=== PATIENT | female | born 1955 | race Two or more races ===

== ENCOUNTER 2023-05-09 18:38 | Emergency (ER) | payer OTHER ==
[~2023-05-09] VITALS: Ht 167.6 cm; Wt 75.0 kg
[2023-05-09 20:02] VITALS: TEMP 98.9
[2023-05-09 20:04] VITALS: BP 136/79; PULSE 72; RESP 17
[2023-05-09] MEDS ORDERED: ACYCLOVIR 200 MG CAPSULE PO ONE (20:15)
== END 2023-05-09 21:50 ==
LOC: EMS 18:41
DX: B02.9 Zoster without complications (principal)
CPT/HCPCS: 99283

== ENCOUNTER 2023-05-10 12:56 | Inpatient (IN) | payer OTHER ==
[~2023-05-10] VITALS: Ht 154.9 cm; Wt 54.0 kg
[2023-05-10] MEDS: IBUPROFEN 600 MG TABLET PO SCH ×2 (11:28→18:00)
[2023-05-10] MEDS ORDERED: IBUPROFEN 600 MG TABLET PO PRN (13:15)
[2023-05-10] MEDS ORDERED: IBUPROFEN 600 MG TABLET PO ONE (13:15)
[2023-05-10] MEDS ORDERED: ValACYclovir HCL 500 MG TABLET PO ONE (13:15)
[2023-05-10] MEDS ORDERED: ZOLPIDEM TARTRATE 10 MG TABLET PO PRN (13:15)
[2023-05-10 14:36] LABS: BASOPHILS % (AUTO) 0.6 % (0.0-2.0); EOSINOPHILS % (AUTO) 2.9 % (1.0-6.0); HEMATOCRIT 41.1 % (36-46); HEMOGLOBIN 13.8 g/dL (12.0-16.0); LYMPHOCYTES # (AUTO) 1.3 K/uL (1.0-4.8); LYMPHOCYTES % (AUTO) 18.7 % (22.0-44.0); MEAN CORPUSCULAR HEMOGLOBIN 30.6 pg (26.0-34.0); MEAN CORPUSCULAR HGB CONC 33.5 G/dL (31.0-37.0); MEAN CORPUSCULAR VOLUME 91 fL (80-100); MONOCYTES # (AUTO) 0.4 K/uL (0.1-1.0); MONOCYTES % (AUTO) 6.4 % (2.0-9.0); NEUTROPHILS % (AUTO) 71.4 % (40.0-70.0); PLATELET COUNT (AUTO) 248 K/uL (150-450); RED BLOOD CELL COUNT(AUTO) 4.51 MIL/uL (4.00-5.20); RED CELL DISTRIBUTION WIDTH 14.7 % (11.5-14.5)
[2023-05-10 14:45] LABS: ANION GAP 6 mmol/L (8-16); CALCIUM, TOTAL 9.2 mg/dL (8.8-10.5); CARBON DIOXIDE 32 mmol/L (22-29); CHLORIDE 98 mmol/L (98-107); CREATININE 0.79 mg/dL (0.60-1.30); GLOMERULAR FILTR. RATE CALC > 60 mL/min (>60); GLUCOSE,RANDOM 99 mg/dL (70-110); POTASSIUM 4.7 mmol/L (3.5-5.1); SODIUM SERUM 136 mmol/L (136-145)
[2023-05-10 14:51] LABS: ALANINE AMINOTRANSFERASE 20 U/L (12-78); ALBUMIN 3.6 g/dL (3.4-5.0); ALKALINE PHOSPHATASE 71 U/L (46-116); ASPARTATE AMINOTRANSFERASE 19 U/L (15-37); BILIRUBIN,TOTAL 0.3 mg/dL (0.1-1.0); TOTAL PROTEIN, SERUM 7.1 g/dL (6.4-8.2)
[2023-05-10] MEDS ORDERED: BISACODYL 10 MG RECTAL RECTAL SUPPOSITORY PR PRN (16:45)
[2023-05-10] MEDS ORDERED: ONDANSETRON HCL 4 MG/2 ML VIAL IVP PRN (16:45)
[2023-05-10] MEDS ORDERED: MAGNESIUM HYDROXIDE SUSPENSION 30 ML UDCUP PO PRN (16:45)
[2023-05-10] MEDS ORDERED: ALBUTEROL SULFATE 2.5 MG/0.5 ML NEB SOLUTION NEB PRN (16:45)
[2023-05-10] MEDS ORDERED: IPRATROPIUM BROMIDE 0.5 MG/2.5 ML NEB SOLUTION NEB PRN (16:45)
[2023-05-10 18:16] LABS: COVID AG,FIA SOURCE NASOPHARYNGEAL
[2023-05-10] MEDS: DOCUSATE SODIUM 100 MG CAPSULE PO SCH (20:30)
[2023-05-10] MEDS ORDERED: ValACYclovir HCL 500 MG TABLET PO SCH (21:00)
[2023-05-10] MEDS: ZOLPIDEM TARTRATE 5 MG TABLET PO PRN (22:49)
[2023-05-10 22:52] VITALS: BP 116/63; PULSE 60; RESP 17; TEMP 98.1
[2023-05-11 00:10] VITALS: BP 122/65; PULSE 61; RESP 18; TEMP 98.3
[2023-05-11] MEDS: IBUPROFEN 600 MG TABLET PO SCH ×3 (00:56→15:01)
[2023-05-11] MEDS: HEPARIN SODIUM,PORCINE 5,000 UNITS/ML VIAL SQ SCH ×4 (00:56→23:30)
[2023-05-11 04:50] VITALS: BP 126/69; PULSE 56; RESP 18; TEMP 98
[2023-05-11 08:00] VITALS: BP 132/66; PULSE 60; RESP 20; TEMP 98.2
[2023-05-11] MEDS: DOCUSATE SODIUM 100 MG CAPSULE PO SCH ×2 (08:46→23:29)
[2023-05-11] MEDS ORDERED: PANTOPRAZOLE SODIUM 40 MG DR TABLET PO SCH (09:00)
[2023-05-11] MEDS ORDERED: PANTOPRAZOLE SODIUM 40 MG/VIAL IVP SCH (09:00)
[2023-05-11] MEDS: ValACYclovir HCL 500 MG TABLET PO SCH ×2 (15:01→23:29)
[2023-05-11] MEDS: PANTOPRAZOLE SODIUM 40 MG DR TABLET PO SCH (15:01)
[2023-05-11 20:14] VITALS: BP 103/50; PULSE 71; RESP 18; TEMP 98.6
[2023-05-12] MEDS: IBUPROFEN 600 MG TABLET PO SCH ×5 (05:45→23:55)
[2023-05-12 05:54] VITALS: BP 134/72; PULSE 70; RESP 20; TEMP 98.3
[2023-05-12] MEDS: ValACYclovir HCL 500 MG TABLET PO SCH ×3 (08:11→21:41)
[2023-05-12] MEDS: DOCUSATE SODIUM 100 MG CAPSULE PO SCH ×2 (08:12→21:41)
[2023-05-12] MEDS: PANTOPRAZOLE SODIUM 40 MG DR TABLET PO SCH (08:12)
[2023-05-12] MEDS: HEPARIN SODIUM,PORCINE 5,000 UNITS/ML VIAL SQ SCH ×3 (08:13→23:55)
[2023-05-12 08:16] VITALS: BP 153/82; PULSE 66; RESP 18; TEMP 97.5
[2023-05-12] MEDS ORDERED: LISINOPRIL 20 MG TABLET PO ONE (12:00)
[2023-05-12 20:09] VITALS: BP 122/64; PULSE 69; RESP 20; TEMP 98.8
[2023-05-12] MEDS: ZOLPIDEM TARTRATE 5 MG TABLET PO PRN (21:47)
[2023-05-13 04:22] VITALS: BP 122/51; PULSE 62; RESP 19; TEMP 97.9
[2023-05-13] MEDS: IBUPROFEN 600 MG TABLET PO SCH ×3 (05:39→18:00)
[2023-05-13 07:35] VITALS: BP 128/71; PULSE 54; RESP 18; TEMP 98
[2023-05-13] MEDS: HEPARIN SODIUM,PORCINE 5,000 UNITS/ML VIAL SQ SCH ×2 (08:44→17:01)
[2023-05-13] MEDS: ValACYclovir HCL 500 MG TABLET PO SCH ×2 (08:44→16:56)
[2023-05-13] MEDS: DOCUSATE SODIUM 100 MG CAPSULE PO SCH (08:44)
[2023-05-13] MEDS: PANTOPRAZOLE SODIUM 40 MG DR TABLET PO SCH (08:44)
[2023-05-13] MEDS ORDERED: LISINOPRIL 20 MG TABLET PO SCH (09:00)
[2023-05-13] MEDS ORDERED: VALA500T PO (11:38)
[2023-05-13] MEDS ORDERED: IBUP-1492 PO ×2 (11:38→13:30)
[2023-05-13] MEDS ORDERED: LISI-894 PO ×2 (11:38→13:32)
[2023-05-13] MEDS ORDERED: VALA500T34 PO (13:33)
[2023-05-13 16:07] VITALS: BP 120/66; PULSE 68; RESP 18; TEMP 99.4
== END 2023-05-13 17:30 | DRG 607 ==
LOC: EMS 13:53 → 5S 16:44 → 6S 05-11
PROVIDERS: ADMIT Hospitalist; ATTEND Hospitalist
DX: B00.9 Herpesviral infection, unspecified (principal); B02.9 Zoster without complications; I10 Essential (primary) hypertension; L29.9 Pruritus, unspecified; Z20.822 Contact with and (suspected) exposure to COVID-19; G47.00 Insomnia, unspecified; Z88.6 Allergy status to analgesic agent; Z88.5 Allergy status to narcotic agent
CPT/HCPCS: 80053; 84484; 85025; 86695; 86696; 99285; J1644